=== PATIENT | female | born 1935 | race Caucasian/White ===

== ENCOUNTER → 2019-01-13 07:36 | Day surgery (SDC) | payer MEDICARE, BC ==
[~2019-01-13 07:36] MED LIST: Acetaminophen TAB* 325 MG PO PRN; Buffered Lidocaine 1% SYRIN* 1 ML/SYRINGE INTRADERM ONE; Cyclopentolate 1% OPTH.SOL* 2 ML BTL ONE; Ketorolac 0.5% OPHTH (NF) 0.5 % 5 ML BTL ONE; Lidocaine 1% MPF ** 5 ML VIAL ONE; Midazolam* 1 MG/ML 5 ML VIAL (5 MG) ONE; Neomycin/Polymy/Dex OPHTH.OIN* 3.5 GM ONE; Phenylephrine OPHTH SOL 2.5%* 2 ML ONE; Tetracaine 0.5% OPTH.SOL 4 ML* 1 DROP BTL ONE; Tropicamide 1% OPTH.SOL* BTL ONE; fentaNYL* 50 MCG/ML 2 ML VIAL (100 MCG VIAL) ONE
--- NOTE | 2019-01-13 09:35 | OP ---
DATE OF OPERATION: 01/13/19 [facility] DATE OF : 39 SURGEON: Dr. Maurilio Tarcey. ASSEMBLER CHASSIS: None. ANESTHESIA: Topical with intravenous sedation. PRE-OP DIAGNOSIS: Cataract, left eye. POST-OP DIAGNOSIS: Cataract, left eye. OPERATIVE PROCEDURE: Phacoemulsification and cataract extraction with posterior chamber intraocular lens implant, left eye. COMPLICATIONS: None. BLOOD LOSS: None. DESCRIPTION OF PROCEDURE: The patient was brought to the operating room and received a small amount of intravenous sedation. A drop of Tetracaine was placed in her left eye. The patient was prepped and draped in the usual sterile fashion for ophthalmic surgery and attention was directed to the left eye where a speculum was placed. A paracentesis was created at the 5 o'clock position and 0.1 cc of 1 percent preservative-free Lidocaine was injected into the anterior chamber followed by DisCoVisc. The eye was digitally stabilized while a 2.75 mm keratome was used to create a triplanar clear corneal incision at the 3 o'clock position. A continuous curvilinear capsulorrhexis was created with a cystotome and Utrata forceps. BSS on a cannula was used to hydrodissect the lens from the capsule. Phacoemulsification was performed in a divide-and- conquer technique to create four fragments which were removed. Residual cortical material was removed with irrigation and aspiration. DisCoVisc was used to inflate the capsular bag and an AU00T0 21.5 diopter lens was folded and inserted into the capsular bag. DisCoVisc was removed using irrigation and aspiration. BSS on a cannula was used to hydrate the corneal stroma and seal the wound. At the end of the case the pupil was round and the lens was centered. The eye was of normal pressure and the wound was water tight. The speculum was removed and topical Maxitrol ointment was placed on the surface of the eye. The eye was closed, patched and shielded, and the patient was sent to the recovery room in stable condition with post operative instructions and follow-up appointment given. [id number] #: [id number] SILVA
[2019-01-13 13:29] VITALS: BP 131/66
== END | disposition home or self-care (01) ==
LOC: OREAST 07:36
PROVIDERS: ATTEND Ophthalmology
DX: H25.12 Age-related nuclear cataract, left eye (principal); K21.9 Gastro-esophageal reflux disease without esophagitis; G25.81 Restless legs syndrome; F41.9 Anxiety disorder, unspecified
CPT/HCPCS: A9270-GY; J2250; J3010; V2632

== ENCOUNTER 2019-01-20 07:25 | Day surgery (SDC) | payer MEDICARE, BC ==
[~2019-01-20 07:25] MED LIST changes: -Cyclopentolate 1% OPTH.SOL* 2 ML BTL ONE; -Ketorolac 0.5% OPHTH (NF) 0.5 % 5 ML BTL ONE; -Lidocaine 1% MPF ** 5 ML VIAL ONE; -Midazolam* 1 MG/ML 5 ML VIAL (5 MG) ONE; -Neomycin/Polymy/Dex OPHTH.OIN* 3.5 GM ONE; -Phenylephrine OPHTH SOL 2.5%* 2 ML ONE; -Tetracaine 0.5% OPTH.SOL 4 ML* 1 DROP BTL ONE; -Tropicamide 1% OPTH.SOL* BTL ONE; -fentaNYL* 50 MCG/ML 2 ML VIAL (100 MCG VIAL) ONE
[2019-01-20] MEDS ORDERED: fentaNYL* 50 MCG/ML 2 ML VIAL (100 MCG VIAL) ONE (08:27)
[2019-01-20] MEDS ORDERED: Midazolam* 1 MG/ML 2 ML VIAL (2 MG) ONE (08:27)
[2019-01-20] MEDS ORDERED: Phenylephrine OPHTH SOL 2.5%* 2 ML ONE (09:08)
[2019-01-20] MEDS ORDERED: Lidocaine 1% MPF ** 5 ML VIAL ONE (09:08)
[2019-01-20] MEDS ORDERED: Tetracaine 0.5% OPTH.SOL 4 ML* 1 DROP BTL ONE (09:08)
[2019-01-20] MEDS ORDERED: Neomycin/Polymy/Dex OPHTH.OIN* 3.5 GM ONE (09:08)
[2019-01-20] MEDS ORDERED: Cyclopentolate 1% OPTH.SOL* 2 ML BTL ONE (09:08)
[2019-01-20] MEDS ORDERED: Tropicamide 1% OPTH.SOL* BTL ONE (09:08)
[2019-01-20] MEDS ORDERED: Ketorolac 0.5% OPHTH (NF) 0.5 % 5 ML BTL ONE (09:08)
--- NOTE | 2019-01-20 10:10 | OP ---
DATE OF OPERATION/DATE OF DICTATION: 01/20/2019 - [facility] DATE OF : 1935. SURGEON: Dr. Maurilio Tracey. COMMERCIAL LENDER: None. ANESTHESIA: Topical with intravenous sedation. PRE-OP DIAGNOSIS: Cataract, right eye. POST-OP DIAGNOSIS: Cataract, right eye. OPERATIVE PROCEDURE: Phacoemulsification and cataract extraction with posterior chamber intraocular lens implant, right eye. COMPLICATIONS: None. BLOOD LOSS: None. DESCRIPTION OF PROCEDURE: The patient was brought to the operating room and received a small amount of intravenous sedation. A drop of Tetracaine was placed in her right eye. She was prepped and draped in the usual sterile fashion for ophthalmic surgery and attention was directed to the right eye where a speculum was placed. A paracentesis was created at the 11 o'clock position and 0.1 cc of 1 percent preservative-free Lidocaine was injected into the anterior chamber followed by DisCoVisc. The eye was digitally stabilized while a 2.75 mm keratome was used to create a triplanar clear corneal incision at the 9 o'clock position. A continuous curvilinear capsulorrhexis was created with a cystotome and Utrata forceps. BSS on a cannula was used to hydrodissect the lens from the capsule. Phacoemulsification was performed in a divide-and- conquer technique to create four fragments which were removed. Residual cortical material was removed with irrigation and aspiration. DisCoVisc was used to inflate the capsular bag and an AUOOTO 21.5 diopter lens was folded and inserted into the capsular bag. DisCoVisc was removed using irrigation and aspiration. BSS on a cannula was used to hydrate the corneal stroma and seal the wound. At the end of the case the pupil was round and the lens was centered. The eye was of normal pressure and the wound was water tight. The speculum was removed and topical Maxitrol ointment was placed on the surface of the eye. The eye was closed, patched and shielded and the patient was sent to the recovery room in stable condition with post operative instructions and follow-up appointment given. [id number]/CPS #: [id number] MTDD
[2019-01-20 10:41] VITALS: BP 125/90
== END 2019-01-20 09:26 | disposition home or self-care (01) ==
LOC: OREAST 07:25
PROVIDERS: ATTEND Ophthalmology
DX: H25.11 Age-related nuclear cataract, right eye (principal); Z87.891 Personal history of nicotine dependence; K21.9 Gastro-esophageal reflux disease without esophagitis; E78.5 Hyperlipidemia, unspecified; F41.8 Other specified anxiety disorders
CPT/HCPCS: A9270-GY; J2250; J3010; V2632

== ENCOUNTER 2019-02-17 07:24 | Emergency (ER) | payer MEDICARE, BC ==
--- OUTSIDE RECORDS SUMMARY | 2019-02-17 07:39 | XMS REPORT | Continuity of Care Document ---
:1935 External Reference #:[id number] Author Name Maurilio Tracey M.D. Address [address] [place] [address] Care Team Providers Name Role Phone Shelley Murray FNP-C Care Team Information Screw Eye Assembler [phone] Problems Description No Information Available Social History Type Date Description Comments Sex Unknown ETOH Use Never used alcohol Tobacco Use Start: Unknown Patient has never smoked Smoking Status Reviewed: 12/19/18 Patient has never smoked Allergies, Adverse Reactions, Alerts Description No Known Drug Allergies Medications Description No Active Medications Immunizations Description No Information Available Vital Signs Date Vital Result Comment 12/19/2018 10:51am Intraocular Pressure Right Eye 21 mmHg Intraocular Pressure Left Eye 22 mmHg Cornea Thickness Left Eye 604 m Cornea Thickness Right Eye 613 m Pachymetry adjusted IOP Right Eye -4 Pachymetry adjusted IOP Left Eye -4 Results Description No Information Available Procedures Date Code Description Status 12/19/2018 77610 Fundus Photography W/Interpretation & Report Completed 12/19/2018 90657 Ophthalmoscopy Initial Completed 12/19/2018 38338 Ophthalmic Biometry By Partial Coherence Interferometry Completed W/Intra 12/19/2018 60808 Eye Exam New Comprehensive Completed Medical Devices Description No Information Available Encounters Description No Information Available Assessments Date Code Description Provider 12/19/2018 H25.813 Combined forms of age-related cataract, aMurilio Tracey M.D. bilateral 12/19/2018 H40.053 Ocular hypertension, bilateral Maurilio Tracey M.D. 12/19/2018 H43.813 Vitreous degeneration, bilateral Maurilio Tracey M.D. Plan of Treatment 12/19/2018 - Maurilio Tracey M.D.H25.813 Combined forms of age-related cataract , bilateralComments:Risks, benefits and alternatives to cataract extraction and posterior chamber intraocular lens placement explained, understood and accepted including but not limited to: re-operation, infection, retinal detachment, glaucoma, bleeding in the eye, retained lens material, corneal or macular edema , need for glasses, poor vision and other.Follow up:Schedule patient for the next available cataract surgery date.H40.053 Ocular hypertension, bilateralComments:Risks, benefits and alternatives to cataract extraction and posterior chamber intraocular lens placement explained, understood and accepted including but not limited to: re-operation, infection, retinal detachment, glaucoma, bleeding in the eye, retained lens material, corneal or macular edema , need for glasses, poor vision and other.Follow up:Schedule patient for the next available cataract surgery date.H43.813 Vitreous degeneration, bilateralComments:Risks, benefits and alternatives to cataract extraction and posterior chamber intraocular lens placement explained, understood and accepted including but not limited to: re-operation, infection, retinal detachment, glaucoma, bleeding in the eye, retained lens material, corneal or macular edema , need for glasses, poor vision and other.Follow up:Schedule patient for the next available cataract surgery date. Functional Status Description No Information Available Mental Status Description No Information Available Referrals Description No Information Available
--- OUTSIDE RECORDS SUMMARY | 2019-02-17 07:39 | XMS REPORT | Continuity of Care Document ---
:1935 External Reference #:[id number] Author Name Maurilio Tracey M.D. Address [address] [place] [address] Care Team Providers Name Role Phone Shelley Murray FNP-C Care Team Information Litigation Specialist [phone] Problems Description No Information Available Social History Type Date Description Comments Sex Unknown ETOH Use Never used alcohol Tobacco Use Start: Unknown Patient has never smoked Smoking Status Reviewed: 01/14/19 Patient has never smoked Allergies, Adverse Reactions, Alerts Description No Known Drug Allergies Medications Active Medications SIG Qnty Indications Ordering Provider Date Vigamox 1 drop left eye 6ml Maurilio Tracey, 01/06/2019 0.5% Solution four times a day, M.D. start drops morning of surgery Ketorolac Tromethamine 1 drops left eye 10ml Maurilio Tracey, 01/06/2019 twice a day M.D. 0.5% Solution Pred Forte one drop four 20ml Maurilio Tracey, 01/06/2019 1% Suspension times a day left M.D. eye x 1 week, then taper as directed History Medications No Active Medications Unknown 12/19/2018 - 01/06/2019 Immunizations Description No Information Available Vital Signs Date Vital Result Comment 01/14/2019 9:56am Intraocular Pressure Left Eye 22 mmHg 12/19/2018 10:51am Intraocular Pressure Right Eye 21 mmHg Intraocular Pressure Left Eye 22 mmHg Cornea Thickness Left Eye 604 m Cornea Thickness Right Eye 613 m Pachymetry adjusted IOP Right Eye -4 Pachymetry adjusted IOP Left Eye -4 Results Description No Information Available Procedures Date Code Description Status 12/19/2018 64915 Fundus Photography W/Interpretation & Report Completed 12/19/2018 31572 Ophthalmoscopy Initial Completed 12/19/2018 04309 Ophthalmic Biometry By Partial Coherence Interferometry Completed W/Intra 12/19/2018 85119 Eye Exam New Comprehensive Completed Medical Devices Description No Information Available Encounters Description No Information Available Assessments Date Code Description Provider 01/14/2019 Z48.89 Encounter for other specified surgical Maurilio Tracey M.D. aftercare 12/19/2018 H25.813 Combined forms of age-related cataract, Maurilio Tracey M.D. bilateral 12/19/2018 H40.053 Ocular hypertension, bilateral Maurilio Tracey M.D. 12/19/2018 H43.813 Vitreous degeneration, bilateral Maurilio Tracey M.D. Plan of Treatment Future Appointment(s):02/24/2019 8:45 am - Suresh Jim, OD at [facility] [id number] 11:00 am - Suresh Jim, OD at [facility] Tnrzjq9401/21/2019 10:00 am - Maurilio Tracey M.D. at [facility] Rhmkup4001/20/2019 10:25 am - Maurilio Tracey M.D. at [facility] Hovqmv5901/14/2019 - Maurilio Tracey M.D.Z48.89 Encounter for other specified surgical aftercareComments:The patient was seen post-operatively one day following surgery. The patient was advised that the eye tolerated the surgery well without complications. Patient was given eye drop schedule and implant card.The patient was told to wear an eye shield QHS for one week and sunglasses daily. The patient was also advised to contact us immediately if new symptoms or visual changes are noted such as pain, worsening redness, flashes, floaters or decrease in vision.Follow up:The patient is to return in one week to follow up after cataract surgery and sooner if needed. Functional Status Description No Information Available Mental Status Description No Information Available Referrals Description No Information Available
--- OUTSIDE RECORDS SUMMARY | 2019-02-17 07:39 | XMS REPORT | Continuity of Care Document ---
:1935 External Reference #:[id number] Author Name Suresh Jim, OD Address [address] [place] [address] Care Team Providers Name Role Phone Shelley Murray FNP-C Care Team Information Etl Consultant [phone] Problems Description No Information Available Social History Type Date Description Comments Sex Unknown ETOH Use Never used alcohol Tobacco Use Start: Unknown Patient has never smoked Smoking Status Reviewed: 01/26/19 Patient has never smoked Allergies, Adverse Reactions, Alerts Description No Known Drug Allergies Medications Active Medications SIG Qnty Indications Ordering Provider Date Ketorolac Tromethamine 1 drops left eye 10ml Maurilio Tracey, 01/06/2019 twice a day M.D. 0.5% Solution Pred Forte one drop four 20ml Maurilio Tracey, 01/06/2019 1% Suspension times a day left M.D. eye x 1 week, then taper as directed History Medications Vigamox 1 drop left eye 6ml Maurilio Tracey, 01/06/2019 - 0.5% Solution four times a day, M.D. 01/27/2019 start drops morning of surgery No Active Medications Unknown 12/19/2018 - 01/06/2019 Immunizations Description No Information Available Vital Signs Date Vital Result Comment 01/27/2019 11:57am Intraocular Pressure Right Eye 22 mmHg Intraocular Pressure Left Eye 22 mmHg 01/21/2019 9:47am Intraocular Pressure Right Eye 22 mmHg Intraocular Pressure Left Eye 22 mmHg Results Description No Information Available Procedures Date Code Description Status 01/13/2019 09366 Extracapsular Cataract Extraction W/Intraocular Lens Completed 12/19/2018 38289 Fundus Photography W/Interpretation & Report Completed 12/19/2018 91500 Ophthalmoscopy Initial Completed 12/19/2018 95232 Ophthalmic Biometry By Partial Coherence Interferometry Completed W/Intra 12/19/2018 04635 Eye Exam New Comprehensive Completed Medical Devices Description No Information Available Encounters Description No Information Available Assessments Date Code Description Provider 01/27/2019 Z96.1 Presence of intraocular lens Suresh Jim, OD 01/21/2019 Z48.89 Encounter for other specified surgical Maurilio Tracey M.D. aftercare 01/14/2019 Z48.89 Encounter for other specified surgical Maurilio Tracey M.D. aftercare 01/13/2019 H25.12 Age-related nuclear cataract, left eye Maurilio Tracey M.D. 12/19/2018 H25.813 Combined forms of age-related cataract, Maurilio Tracey M.D. bilateral 12/19/2018 H40.053 Ocular hypertension, bilateral Maurilio Tracey M.D. 12/19/2018 H43.813 Vitreous degeneration, bilateral Maurilio Tracey M.D. Plan of Treatment Future Appointment(s):02/24/2019 8:45 am - Suresh Jim, OD at [facility] [id number] - Suresh Jim, ODZ96.1 Presence of intraocular lensFollow up:as scheduled 1 month post op, sooner PRN Functional Status Description No Information Available Mental Status Description No Information Available Referrals Description No Information Available
--- OUTSIDE RECORDS SUMMARY | 2019-02-17 07:39 | XMS REPORT | Continuity of Care Document ---
:1935 External Reference #:[id number] Author Name Maurilio Tracey M.D. Address [address] [place] [address] Care Team Providers Name Role Phone Shelley Murray FNP-C Care Team Information Trials Manager [phone] Problems Description No Information Available Social History Type Date Description Comments Sex Unknown ETOH Use Never used alcohol Tobacco Use Start: Unknown Patient has never smoked Smoking Status Reviewed: 01/20/19 Patient has never smoked Allergies, Adverse Reactions, [...] Available Vital Signs Date Vital Result Comment 01/21/2019 9:47am Intraocular Pressure Right Eye 22 mmHg Intraocular Pressure Left Eye 22 mmHg 01/14/2019 9:56am Intraocular Pressure Left Eye 22 mmHg Results Description No Information Available Procedures Date Code Description Status 01/13/2019 75569 Extracapsular Cataract Extraction W/Intraocular Lens Completed 12/19/2018 52693 Fundus Photography W/Interpretation & Report Completed 12/19/2018 86814 Ophthalmoscopy Initial Completed 12/19/2018 13978 Ophthalmic Biometry By Partial Coherence Interferometry Completed W/Intra 12/19/2018 64317 Eye Exam New Comprehensive Completed Medical Devices Description No Information Available Encounters Description No Information Available Assessments Date Code Description Provider 01/21/2019 Orion48.89 Encounter for other specified surgical Maurilio Tracey [...] am - Suresh Jim, OD at [facility] [id number] 11:00 am - Suresh Jim, OD at [facility] Dtyhsz0901/21/2019 - Maurilio Tracey M.D.Z48.89 Encounter for other [...] or visual changes are noted such as pain , worsening redness, flashes, floaters or decrease in vision.Follow up:The patient is to return in one week to follow up after cataract surgery and sooner if needed. Functional Status Description No Information Available Mental Status Description No Information Available Referrals Description No Information Available
--- NOTE | 2019-02-17 07:41 | ED ---
Upper Extremity Pain - HPI Summary HPI Summary: This patient is a 83 year old F presenting to ED with a chief complaint of left upper arm and shoulder pain since last Saturday morning. Patient reports she was washing her hair with her hand above her head and then felt the sharp pain. She states the pain has gotten worse and is now having trouble raising her left arm. Patient is taking 12 hour Aleve for pain, but she reports it helps for only 3 hours and then is gone. She has only taken Aleve once. The patient rates the pain 10/10 in severity. Symptoms aggravated by movement. Symptoms alleviated by nothing. Patient denies fever. Medications reviewed. Allergies noted. - History of Current Complaint Chief Complaint: EDExtremityUpper Stated Complaint: UPPER LT ARM INJ PER PT Time Seen by Provider: 02/17/19 07:35 Hx Obtained From: Patient Onset/Duration: Started Days Ago - 02/14/19, Still Present, Worse Since Timing: Constant, Lasting Days - Since 02/14/19 Severity Initially: Severe Severity Currently: Severe Pain Location: Shoulder - Left Character: Sharp Aggravating Factor(s): Movement Alleviating Factor(s): Nothing Associated Signs & Symptoms: Negative: Fever - Allergies/Home Medications Allergies/Adverse Reactions: Allergies Allergy/AdvReac Type Severity Reaction Status Date / Time No Known Allergies Allergy Verified 02/17/19 07:30 PMH/Surg Hx/FS Hx/Imm Hx Previously Healthy: No Endocrine/Hematology History: Denies: Hx Bone Marrow Disease, Hx Diabetes, Hx Sickle Cell Disease, Hx Anemia Cardiovascular History: Reports: Hx Hypercholesterolemia Denies: Hx Angina, Hx Coronary Artery Disease, Hx Hypertension, Hx Myocardial Infarction, Other Cardiovascular Problems/Disorders Respiratory History: Denies: Hx Asthma, Hx Chronic Obstructive Pulmonary Disease (COPD) GI History: Reports: Hx Gastroesophageal Reflux Disease - MILD, TAKES TUMS OCCASIONALLY Musculoskeletal History: Reports: Hx Osteoporosis, Other Musculoskeletal History - RESTLESS LEG SYNDROME Sensory History: Reports: Hx Cataracts - BILATERAL, Hx Contacts or Glasses - GLASSES Denies: Hx Glaucoma, Hx Hearing Aid Opthamlomology History: Reports: Hx Cataracts - BILATERAL, Hx Contacts or Glasses - GLASSES Denies: Hx Glaucoma Psychiatric History: Reports: Hx Anxiety - MILD, Hx Substance Abuse Denies: Hx Eating Disorder, Hx of Violent Episodes Against Others - Cancer History Hx Chemotherapy: No Hx Radiation Therapy: No - Surgical History Surgery Procedure, Year, and Place: LEFT KNEE ARTHROSCOPY [facility] Hx Anesthesia Reactions: No Infectious Disease History: No Infectious Disease History: Denies: Hx Clostridium Difficile, Hx Hepatitis, Hx Human Immunodeficiency Virus (HIV), Hx of Known/Suspected MRSA, Hx Shingles, Hx Tuberculosis, Traveled Outside the [place] in Last 30 Days - Social History Alcohol Use: None Hx Substance Use: No Substance Use Type: Reports: None Hx Tobacco Use: Yes Smoking Status (MU): Former Smoker Type: Cigarettes Amount Used/How Often: 1-2 PPD FOR 15 YRS Length of Time of Smoking/Using Tobacco: 15 YRS Have You Smoked in the Last Year: No Review of Systems Negative: Fever Musculoskeletal: Other - Left shoulder pain All Other Systems Reviewed And Are Negative: Yes Physical Exam - Summary Physical Exam Summary: Constitutional: Well-developed, Well-nourished, Alert. (-) Distressed Skin: Warm, Dry HENT: Normocephalic; Atraumatic Eyes: Conjunctiva normal Neck: Musculoskeletal ROM normal neck. (-) JVD, (-) Stridor, (-) Tracheal deviation Cardio: Rhythm regular, rate normal, Heart sounds normal; Intact distal pulses; Radial pulses are 2+ and symmetric. (-) Murmur Pulmonary/Chest wall: Effort normal. (-) Respiratory distress, (-) Wheezes, (-) Rales Abd: Soft, (-) tenderness, (-) Distension, (-) Guarding, (-) Rebound Musculoskeletal: Tenderness in the lateral shoulder joint. Limited ROM and adduction. Positive beer can test. Radial pulses 2+. Lymph: (-) Cervical adenopathy Neuro: Alert, Oriented x3 Psych: Mood and affect Normal Triage Information Reviewed: Yes Vital Signs On Initial Exam: Initial Vitals Temp Pulse Resp BP Pulse Ox 97.9 F 84 18 202/111 96 02/17/19 07:27 02/17/19 07:27 02/17/19 07:27 02/17/19 07:27 02/17/19 07:27 Vital Signs Reviewed: Yes Procedures - Sedation Patient Received Moderate/Deep Sedation with Procedure: No Diagnostics - Vital Signs Vital Signs Temp Pulse Resp BP Pulse Ox 02/17/19 07:27 97.9 F 84 18 202/111 96 - Laboratory Lab Statement: Any lab studies that have been ordered have been reviewed, and results considered in the medical decision making process. - Radiology L shoulder XR Radiology Interpretation Completed By: Radiologist Summary of Radiographic Findings: SOFT TISSUE CALCIFICATION SUGGESTIVE OF A CALCIFIC TENDINOPATHY. NO ACUTE OSSEOUS INJURY. IF SYMPTOMS PERSIST, RECOMMEND REPEAT IMAGING. Dr. Phillips has reviewed this radiology report. Re-Evaluation - Re-Evaluation First Eval Re-Evaluation Time: 08:14 Comment: Discussed results with patient. Patient will be discharged home with dx of left rotator cuff tear. Patient understands and agrees with this plan. Course/Dx - Course Course Of Treatment: Patient is here sudden onset pain in her left shoulder while washing her hair. Patient has pain over her lateral shoulder joint and cannot abduct her arm. Patient had negative x-ray for pathologic fracture. Patient is likely suffering from a rotator cuff injury. Patient is placed in a sling and given orthopedic surgery follow-up. - Diagnoses Provider Diagnoses: Left rotator cuff tear Discharge ED - Sign-Out/Discharge Documenting (check all that apply): Patient Departure - Discharge - Discharge Plan Condition: Stable Disposition: HOME Prescriptions: Acetaminophen with Codeine [Acetaminophen-Cod #3 Tablet] 1 each PO BID PRN #12 tablet MDD 2 tablets PRN Reason: Pain - Severe Patient Education Materials: Rotator Cuff Injury (ED) Referrals: [facility] [Outside] John Carroll MD [Medical Doctor] - 3 Days Additional Instructions: Call Dr. Carroll (orthopedics) today to make an appointment. Use your sling as necessary for pain. Keep taking your Aleve. Take your prescribed pain medication if the Aleve is not helping. Return to the ED for worsening or concerning symptoms. - Billing Disposition and Condition Condition: STABLE Disposition: Home - Attestation Statements Document Initiated by Pa: Yes Documenting Scribe: Ersamo Whitaker Provider For Whom Pa is Documenting (Include Credential): Cameron Phillips MD Scribe Attestation: Erasmo Metzger, scribed for Cameron Phillips MD on 02/17/19 at 0820. Scribe Documentation Reviewed: Yes Provider Attestation: The documentation as recorded by the Erasmo maciel accurately reflects the service I personally performed and the decisions made by me, Cameron Phillips MD Status of Scribe Document: Viewed
[2019-02-17] MEDS ORDERED: HYDROcodone/ACETAMIN 5-325 MG* 1 TAB PO ONE (07:43)
[2019-02-17 08:26] VITALS: BP 127/65
== END 2019-02-17 08:25 | disposition home or self-care (01) ==
LOC: ED 07:24
DX: M75.102 Unspecified rotator cuff tear or rupture of left shoulder, not specified as traumatic (principal); E78.00 Pure hypercholesterolemia, unspecified; K21.9 Gastro-esophageal reflux disease without esophagitis; G25.81 Restless legs syndrome; F41.9 Anxiety disorder, unspecified; Z87.891 Personal history of nicotine dependence
CPT/HCPCS: 99282